=== PATIENT | female | born 1950 | race Caucasian/White ===

== ENCOUNTER 2022-07-28 22:26 | Emergency (ER) | payer MEDICARE, OTHER ==
[~2022-07-28] VITALS: Ht 157.5 cm; Wt 63.5 kg
--- NOTE | 2022-07-28 23:45 | NUR ---
Patient ambulated to room #4, assisted into gown, informed of plan of care at this time. No s/s of any distress noted, awaiting MD exam.
--- NOTE | 2022-07-29 00:39 | NUR ---
Patient went off unit to CT.
--- NOTE | 2022-07-29 01:17 | NUR ---
MD was at bedside talking with patient, patient refused to wait for results, signed out MD JAEL aware. Patient ambulated out of ER with steady gait.
[2022-07-29 01:19] VITALS: BP 176/75
== END 2022-07-29 01:20 | disposition left against medical advice (07) ==
LOC: ER 22:26
DX: S09.90XA Unspecified injury of head, initial encounter (principal); W01.0XXA Fall on same level from slipping, tripping and stumbling without subsequent striking against object, initial encounter; Y92.89 Other specified places as the place of occurrence of the external cause; E89.0 Postprocedural hypothyroidism; I25.2 Old myocardial infarction; E78.00 Pure hypercholesterolemia, unspecified; Z79.01 Long term (current) use of anticoagulants; E11.9 Type 2 diabetes mellitus without complications; Z85.3 Personal history of malignant neoplasm of breast; R03.0 Elevated blood-pressure reading, without diagnosis of hypertension; Z53.29 Procedure and treatment not carried out because of patient's decision for other reasons
CPT/HCPCS: 70450; A4663

== ENCOUNTER 2022-08-09 19:37 | Inpatient (IN) | payer MEDICARE, OTHER ==
[~2022-08-09] VITALS: Ht 157.5 cm; Wt 63.0 kg
--- NOTE | 2022-08-09 20:00 | NUR ---
Patient walked into ER c/o N/V for 2 days and CP that started this afternoon describing CP as pressure pain. Patient states she took 2 nitro SL 2hrs SINGLE [employer] and relieved CP.
[2022-08-09 20:23] LABS: HEMATOCRIT 43.4 % (31.2-41.9); MEAN CORPUSCULAR HEMOGLOBIN 29.1 uug (24.7-32.8); MEAN CORPUSCULAR VOLUME 88.3 fL (75.5-95.3); PLATELET COUNT (AUTO) 202 K/uL (179-408)
--- NOTE | 2022-08-09 20:27 | NUR ---
Dr. Barros at bedside for MSE.
[2022-08-09 20:34] LABS: CARBON DIOXIDE 27 mmol/L (21-32); CHLORIDE 101 mmol/L (98-107); CREATININE 0.9 mg/dL (0.6-1.3); GLUCOSE 179 mg/dL (74-106); POTASSIUM 3.2 mmol/L (3.5-5.1); UREA NITROGEN, BLOOD 17 mg/dL (7-18)
[2022-08-09] MEDS ORDERED: ONDANSETRON HCL 4 MG TABLET ONE (20:45)
[2022-08-09] MEDS ORDERED: MECLIZINE HCL 25 MG TABLET PO ONE (20:45)
[2022-08-09] MEDS ORDERED: MECLIZINE HCL 25 MG TABLET ONE (20:45)
[2022-08-09] MEDS ORDERED: IV NORMAL SALINE 500 ML BAG IV ONE (20:45)
[2022-08-09] MEDS ORDERED: ONDANSETRON HCL 4 MG TABLET PO ONE (20:45)
[2022-08-09 20:48] LABS: ALANINE AMINOTRANSFERASE 20 U/L (14-59); ALKALINE PHOSPHATASE 103 U/L (50-136); ASPARTATE AMINOTRANSFERASE 12 U/L (15-37); BILIRUBIN,DIRECT 0.1 mg/dL (0.0-0.2); BILIRUBIN,TOTAL 0.5 mg/dL (0.2-1.0); TOTAL PROTEIN, SERUM 7.5 g/dL (6.4-8.2)
--- NOTE | 2022-08-09 21:20 | NUR ---
Back from CT.
[2022-08-09] MEDS ORDERED: POTASSIUM CHLORIDE 20 MEQ TAB.PRT.SR PO ONE (21:45)
[2022-08-09] MEDS ORDERED: IOHEXOL 350 100 ML INFUS..BTL ONE (21:57)
[2022-08-09] MEDS ORDERED: SWABABLE VALVE TRANSFER SET EA MC ONE (21:57)
[2022-08-09] MEDS ORDERED: IV NORMAL SALINE 250 ML IV ONE (21:58)
--- NOTE | 2022-08-09 22:15 | NUR ---
Back from CT.
--- NOTE | 2022-08-09 22:51 | NUR ---
Epic panel call placed, spoke to Suyapa, stated she will get a hold of BRI Ortiz for admitting.
[2022-08-09] MEDS ORDERED: CEFTRIAXONE /D5W 50ML IVPB **ER PYXIS IV ONE (22:53)
[2022-08-09] MEDS ORDERED: AZITHROMYCIN 500MG/ D5W 250ML IVPB **ER PYXIS ONLY IV ONE (22:54)
--- NOTE | 2022-08-09 22:55 | NUR ---
Dr Barros on panel call with BRI Ortiz. Patient accepted for admission to Tele unit, Dx of ROBBIN.
[2022-08-09] MEDS ORDERED: AZITHROMYCIN IV 500 MG in IV DEXTROSE 5% 250 ML IV ONE (23:00)
[2022-08-09] MEDS ORDERED: CEFTRIAXONE 1 G in IV DEXTROSE 5% 50 ML IV ONE (23:00)
[2022-08-09] MEDS ORDERED: FOLI1TAB94 PO (23:08)
[2022-08-09] MEDS ORDERED: PRAV80TA21 PO (23:08)
[2022-08-09] MEDS ORDERED: ESCI5TAB PO (23:08)
[2022-08-09] MEDS ORDERED: CLOP75TA15 PO (23:08)
[2022-08-09] MEDS ORDERED: DONE5TAB7 PO (23:08)
[2022-08-09] MEDS ORDERED: LEVO112T5 PO (23:08)
[2022-08-09] MEDS ORDERED: GLIP5TAB13 PO (23:08)
[2022-08-09] MEDS ORDERED: RANO10003 PO (23:08)
[2022-08-09] MEDS ORDERED: CARV12.5 PO (23:08)
[2022-08-09] MEDS ORDERED: LORA2TAB95 PO (23:08)
[2022-08-09] MEDS ORDERED: HYDR-4075 PO (23:08)
[2022-08-09] MEDS ORDERED: AMIT10TA6 PO (23:08)
[2022-08-09] MEDS ORDERED: ISOS30TA86 PO (23:08)
[2022-08-09] MEDS ORDERED: ASPI81TA31 PO (23:08)
[2022-08-09] MEDS ORDERED: PANT40TA2 PO (23:08)
[2022-08-09] MEDS ORDERED: ZOLP5TAB2 PO (23:08)
[2022-08-09] MEDS ORDERED: CYCL30DR OP (23:08)
[2022-08-09] MEDS ORDERED: LOSA1TAB9 PO (23:08)
[2022-08-09] MEDS ORDERED: CYCL10TA9 PO (23:08)
[2022-08-09] MEDS ORDERED: FURO-152 PO (23:08)
[2022-08-09] MEDS ORDERED: AMLO10TA4 PO (23:08)
[2022-08-09] MEDS ORDERED: MAGNESIUM HYDROXIDE 30 ML LIQUID UDC PO PRN (23:15)
[2022-08-09] MEDS ORDERED: ACETAMINOPHEN 325 MG TABLET PO PRN (23:15)
[2022-08-09] MEDS ORDERED: ONDANSETRON 4 MG/2 ML VIAL IV PRN (23:15)
[2022-08-09] MEDS ORDERED: REMEDY ESSENTIAL ZINC PASTE 113 GM TP PRN (23:15)
[2022-08-09] MEDS ORDERED: TEMAZEPAM 15 MG CAPSULE PO PRN (23:15)
[2022-08-09] MEDS ORDERED: NITROGLYCERIN 0.4 MG/TAB BOTTLE SL PRN (23:15)
[2022-08-09] MEDS ORDERED: DEXTROSE 50% 50 ML DISP.SYRIN IV PRN (23:15)
--- NOTE | 2022-08-09 23:15 | NUR ---
Dr. Barros at bedside.
[2022-08-10] VITALS (7 sets, daily range): BP systolic 129–168; BP diastolic 60–89
--- NOTE | 2022-08-10 00:57 | NUR ---
Pt. admitted to telemetry unit room 317, under care of BRI Ortiz. Report given to JAMIN West. Belongs List completed
[2022-08-10] MEDS: ENOXAPARIN SODIUM 40 MG/0.4 ML DISP.SYRIN SQ SCH ×2 (02:20→20:02)
--- NOTE | 2022-08-10 03:00 | NUR ---
ADMITTED THIS 71 Y.O. LADY, ALERT,ORIENTED X4 VIA W/C FROM ER DEPT.,WITH CHIEF COMPLAINTS OF CHEST PAIN, NAUSEA AND VOMITING. 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 W3RIST G 22 PATENT AND SECURED.TRANSFERRED TO BED W/O ANY PROBLEMSSKIN WARM AND DRY ,, NEEDS ATTENDED TO. MEDICATED WITH NITROQUICK X1 SUBLINGUAL FOR CHEST PAIN . REFUSED TO BE CHANGED INTO PT GOWN AT THIS TIME,
--- NOTE | 2022-08-10 05:43 | NUR ---
VITAL SIGNS TAKEN AND RECORDED. SLEOT FAIRLY WELL.
[2022-08-10] MEDS: PANTOPRAZOLE SODIUM 40 MG TABLET.DR PO SCH (06:29)
[2022-08-10] MEDS: BLOOD SUGAR DIAGNOSTIC 1 EACH STRIP VI SCH ×4 (06:30→20:01)
[2022-08-10 06:40] LABS: HEMATOCRIT 40.3 % (31.2-41.9); MEAN CORPUSCULAR HEMOGLOBIN 29.2 uug (24.7-32.8); MEAN CORPUSCULAR VOLUME 89.8 fL (75.5-95.3); PLATELET COUNT (AUTO) 174 K/uL (179-408)
[2022-08-10 06:51] LABS: CARBON DIOXIDE 27 mmol/L (21-32); CHLORIDE 106 mmol/L (98-107); CHOLESTEROL 169 mg/dL (<200); CREATININE 0.6 mg/dL (0.6-1.3); GLUCOSE 80 mg/dL (74-106); HDL CHOLESTEROL 40 mg/dL (40-60); MAGNESIUM 2.2 mg/dL (1.8-2.4); PHOSPHOROUS 3.2 mg/dL (2.5-4.9); POTASSIUM 3.6 mmol/L (3.5-5.1); TRIGLYCERIDES 126 MG/DL (30-150); UREA NITROGEN, BLOOD 12 mg/dL (7-18)
--- NOTE | 2022-08-10 08:00 | NUR ---
Received pt. in bed A/O x 4, SR on telemonitor @72pbm. patient on room air saturating @ 96-98. Denies any pain and discomfort. Observed accordingly.
[2022-08-10 08:35] LABS: THYROID STIMULATING HORMONE 6.145 mIU/mL (0.358-3.740)
--- NOTE | 2022-08-10 11:00 | NUR ---
Midline inserted on right upper arm g.18, patent and intact.
[2022-08-10] MEDS: INSULIN REGULAR, HUMAN 300 UNIT/3 ML VIAL SQ PRN ×2 (11:45→20:02)
--- NOTE | 2022-08-10 14:50 | NUR ---
Pt. resting in bed awake. No complain of pain and discomfort. No change from morning assessment.
[2022-08-10] MEDS ORDERED: BUTALB/ACETAMINOPHEN/CAFFEINE CAPSULE PO PRN (20:45)
[2022-08-10] MEDS ORDERED: hydrALAZINE HCL 20 MG/1 ML VIAL IV PRN (20:45)
--- NOTE | 2022-08-10 20:55 | NUR ---
Patient BP was 168/81, rechecked and was 163/60. Patient also complaining of headache behind her head. Informed both Dr Cárdenas and Dr Willams. Dr. Cárdenas with order to start Hydralazine 10mg IV every 4 hours PRN for SBP greater than 160 and Fioricet 1 cap PO every [address] Willams with order to start home medication Coreg12.5mg Q12hrs and given 1 dose tonight. Amlodipine 10mg po daily to start in AM tomorrow, and Losartan 50mg po daily, to start 1 dose tonight. All order verified and will carry out.
[2022-08-10] MEDS ORDERED: AZITHROMYCIN IV 500 MG in IV DEXTROSE 5% 250 ML IV SCH (21:00)
[2022-08-10] MEDS ORDERED: CEFTRIAXONE 1 G in IV DEXTROSE 5% 50 ML IV SCH ×2 (21:00→23:00)
[2022-08-10] MEDS: CARVEDILOL 12.5 MG TABLET PO SCH (21:01)
[2022-08-10] MEDS: LOSARTAN POTASSIUM 50 MG TABLET PO SCH (21:02)
[2022-08-11 00:09] VITALS: BP 151/76
[2022-08-11 04:00] VITALS: BP 115/71
[2022-08-11] MEDS: PANTOPRAZOLE SODIUM 40 MG TABLET.DR PO SCH (06:02)
[2022-08-11] MEDS: BLOOD SUGAR DIAGNOSTIC 1 EACH STRIP VI SCH (06:36)
[2022-08-11] MEDS: CARVEDILOL 12.5 MG TABLET PO SCH (08:33)
[2022-08-11 08:34] VITALS: BP 133/60
[2022-08-11] MEDS: LOSARTAN POTASSIUM 50 MG TABLET PO SCH (08:34)
[2022-08-11] MEDS ORDERED: AMLODIPINE 10 MG TABLET PO SCH (09:00)
--- NOTE | 2022-08-11 11:20 | NUR ---
Pt. discharged home and picked up by her son. Noted pt.to be stable upon the discharge. No acute distress noted. Belonging returned to the patient and all necessary document signed. IV line removed.
== END 2022-08-11 11:05 | disposition home or self-care (01) | DRG 303 ==
LOC: ER 19:37 → TELE3 22:50
PROVIDERS: ADMIT Internal Medicine; ATTEND Internal Medicine
PROC: 05H533Z Insertion of Infusion Device into Right Subclavian Vein, Percutaneous Approach (ICD-10-PCS; principal; 2022-08-10)
PROC: B546ZZA Ultrasonography of Right Subclavian Vein, Guidance (ICD-10-PCS; 2022-08-10)
DX: I25.110 Atherosclerotic heart disease of native coronary artery with unstable angina pectoris (principal); E87.6 Hypokalemia; I25.2 Old myocardial infarction; Z86.718 Personal history of other venous thrombosis and embolism; Z95.1 Presence of aortocoronary bypass graft; Z95.5 Presence of coronary angioplasty implant and graft; E89.0 Postprocedural hypothyroidism; Z85.3 Personal history of malignant neoplasm of breast; Z20.822 Contact with and (suspected) exposure to COVID-19; E11.9 Type 2 diabetes mellitus without complications
CPT/HCPCS: 36415; 70450; 71045; 71275; 83735; 84100; 84443; 84484; 85025; 93005; 93307; A4663; G0378; J0360; J0456; J0696; J1650; J1815; J7040; J7050; J8597; Q0162; Q9967